=== PATIENT | female | born 1970 | race Caucasian/White ===

== ENCOUNTER 2017-10-11 09:46 | Emergency (ER) | payer OTHER ==
[~2017-10-11] VITALS: Ht 154.9 cm; Wt 79.0 kg
[~2017-10-11 09:46] MED LIST: LOVA40TA4 PO; PANT40TA PO; RANI300T2 PO; SYN100 PO
[2017-10-11 10:03] VITALS: TEMP 36.7; Ht 154.9 cm; Wt 79.0 kg
[2017-10-11 10:46] LABS: BASO % 0.1 %; BASO ABS # 0.02 K/uL (0-0.2); EOS % 0.1 %; EOS ABS # 0.02 K/uL (0-0.5); HEMATOCRIT 40.3 % (37-47); HEMOGLOBIN 13.7 g/dL (12.0-16.0); IG# 0.04 K/uL (0.00-0.02); LYMPH % 17.9 %; LYMPH ABS # 2.72 K/uL (1.2-3.4); MEAN CELL VOLUME 86.3 fL (80-100); MEAN CORPUSCULAR HEMOGLOBIN 29.3 pg (25-34); MEAN PLATELET VOLUME 10.3 fL (7.4-10.4); MONO % 7.4 %; MONO ABS # 1.13 K/uL (0.11-0.59); NEUT % 74.2 %; NEUT ABS # 11.24 K/uL (1.4-6.5); PLATELET COUNT 267 K/uL (130-400); RED CELL DISTRIBUTION WIDTH CV 12.9 % (11.5-14.5); RED CELL DISTRIBUTION WIDTH SD 40.7 fL (36.4-46.3); WHITE BLOOD COUNT 15.17 K/uL (4.8-10.8)
[2017-10-11 10:47] VITALS: O2SAT 98
[2017-10-11 11:00] LABS: BLOOD UREA NITROGEN 13 mg/dl (7-18); CALCIUM 9.1 mg/dl (8.5-10.1); CARBON DIOXIDE 29 mmol/L (21-32); CREATININE 0.74 mg/dl (0.60-1.20); GLUCOSE 89 mg/dl (70-99); POTASSIUM 3.5 mmol/L (3.5-5.1); SODIUM 140 mmol/L (136-145)
--- NOTE | 2017-10-11 11:01 | DIAGNOSTIC IMAGING REPORT ---
HEAD WITHOUT CONTRAST (CT) CLINICAL HISTORY: 47 years-old Female presenting with headache, dizziness. TECHNIQUE: Multidetector CT imaging of the head was performed without the use of intravenous contrast. IV contrast: None. A dose lowering technique was used consistent with the principles of ALARA (as low as reasonably achievable). COMPARISON: None. CT DOSE (mGy.cm): The estimated cumulative dose is 537.48 mGy.cm. FINDINGS: [employer] Professor topogram: Unremarkable. Ventricles and sulci normal in size. Brain parenchyma normal in appearance with preserved porter-white differentiation. No mass effect or midline shift. No hemorrhage or acute territorial infarct. No extra-axial fluid collection. Paranasal sinuses and mastoid air cells clear. Calvarium intact. IMPRESSION: 1. No acute intracranial abnormality. Electronically signed by: Carrington Wall M.D. 10/11/2017 11:00 AM Dictated Date/Time: 10/11/2017 10:57 AM
[2017-10-11 11:04] LABS: CKMB < 0.5 ng/ml (0.5-3.6)
[2017-10-11] MEDS ORDERED: PRED20TA PO (11:16)
[2017-10-11] MEDS ORDERED: ATOR-22 PO (11:16)
[2017-10-11] MEDS ORDERED: ACET-1256 PO (11:18)
[2017-10-11 11:52] VITALS: BP 174/98; PULSE 67; O2SAT 99
--- NOTE | 2017-10-17 17:50 | EMERGENCY ROOM VISIT NOTE ---
History First contact with patient: 10:12 Chief Complaint: HEADACHE Stated Complaint: HEADACHE,ARM AND SHOULDER PAIN,DIZZINESS History of Present Illness The patient is a 47 year old white female who presents to the Emergency Room with complaints of a headache, dizziness, and left arm and shoulder pain. Her left arm and shoulder pain have been ongoing. She noticed increasing discomfort over her left pectoral muscle yesterday and today. She also notes a posterior headache that is radiating to her forehead. She notes some dizziness associated with this. This is worse than other typical headaches. She is nauseated. No vomiting. Pain radiates to her arm along with some tingling. No numbness. She denies any loss of motion of the arm. No recent trauma. No treatment yet. Review of Systems REVIEW OF SYSTEM: HEENT: No dizziness, visual problems, hearing loss, or tinnitus. There is no difficulty swallowing and no oral lesions are present. PULMONARY: No cough, shortness of breath, sputum production or hemoptysis. CARDIOVASCULAR: No chest pain, palpitations, shortness of breath or peripheral edema. GASTROINTESTINAL: No diarrhea, constipation, nausea, vomiting, or abdominal pain. GENITOURINARY: No dysuria, frequency, urgency or nocturia. NEUROLOGIC: No weakness, muscle tenderness, epilepsy or history of neurological problems. No history of chronic headaches. MUSCULOSKELETAL: No history of joint tenderness/swelling. No history of arthritis or arthralgias. SKIN: No rashes or lesions. PSYCHIATRIC: No history of depression or mental illness. ENDOCRINE: No history of diabetes or abnormal hair growth. Past Medical/Surgical History Previous surgeries: Cholecystectomy, hysterectomy Medical history: Elevated cholesterol, GERD, hypothyroidism, arthralgias. Family History Significant for diabetes, heart disease, hypertension, cancer, lung disease, and gallbladder disease. Parents are . Social History Smoking Status: Never Smoker Smokeless Tobacco Use: No Alcohol Use: none Drug Use: none Marital Status: Housing Status: lives with family Occupation Status: unemployed Current/Historical Medications Scheduled Acetaminophen (Tylenol), 1,000 MG PO UD Atorvastatin (Lipitor), 20 MG PO HS Levothyroxine Sodium (Synthroid), 100 MCG PO QAM Pantoprazole (Protonix), 40 MG PO QAM Prednisone (Prednisone), 20 MG PO TAPER DOSE Allergies Coded Allergies: Prochlorperazine (Verified Allergy, Unknown, ANAPHYLAXIS, 4/7/18) Physical Exam Vital Signs Date Time Temp Pulse Resp B/P (MAP) Pulse Ox O2 Delivery O2 Flow Rate FiO2 10/11/17 11:52 67 16 174/98 99 10/11/17 10:47 98 Room Air 10/11/17 10:03 36.7 70 18 174/91 99 Room Air Physical Exam General: Well-developed, well-nourished, middle-aged white female, in obvious discomfort. No acute distress. Sitting on the bed. Alert and oriented. Frequently holding her posterior left shoulder. Skin: Warm and dry with good turgor. No rashes or lesions. No ecchymosis or erythema. The patient is not diaphoretic. No abrasions. HEENT: Normocephalic atraumatic. Eyes PERRLA, EOMI. No conjunctiva or scleral injection. Ears TMs intact bilaterally with good light reflexes. No erythema or bulging. No hemotympanum. Canals are patent. Nares patent bilaterally without turbinate enlargement. No significant drainage. No epistaxis. Oropharynx without erythema or exudate. Uvula midline, oral mucosa moist. No lesions present. Heart: Heart RRR. No MGR. Peripheral pulses are 2+. Lungs: Lungs are clear to auscultation. No crackles rhonchi or wheezing. Good air movement. The patient is able to take a deep breath. Abdomen: Abdomen was inspected, auscultated, and palpated. Bowel sounds present x 4. Soft, nontender to palpation. No hepato-splenomegaly. No masses noted. No rebound. Musculoskeletal: Patient has intact motor function to her neck. Rotation to the left and lateral flexion to the left increase her pain. No pain with palpation over the vertebral bodies or disc spaces. Palpable muscle spasm is present in the left trapezius. No pain with palpation over her posterior rotator cuff musculature. No pain with palpation over the deltoid, bicep, tricep, or forearm. She does complain of discomfort with palpation over the upper left pectoral muscle. Full motion of her digits, wrist, and elbow on the left arm. She has intact motor function to the left shoulder, though she does lack some overhead motion secondary to pain. Strength is 5/5 for resisted motion of the wrist, elbow, and shoulder. Neurologic: Cranial nerves II through XII are intact. Gross sensation is intact across left arm by soft touch. Radial, median, and ulnar nerve motor functions are clearly intact. Medical Decision & Procedures ER Provider Diagnostic Interpretation: CT scan imaging of the head was obtained today to rule out intracranial bleed. This was reviewed by me and read by radiology. No acute intracranial abnormality. EKG obtained today was reviewed by me and addressed with Dr. Benites. Regular rhythm with a rate of 65. No acute ST or T-wave changes. Normal EKG. No previous EKGs to compare. Laboratory Results 10/11/17 10:35 Red Blood Count 4.67, Mean Corpuscular Volume 86.3, Mean Corpuscular Hemoglobin 29.3, Mean Corpuscular Hemoglobin Concent 34.0, Mean Platelet Volume 10.3, Neutrophils (%) (Auto) 74.2, Lymphocytes (%) (Auto) 17.9, Monocytes (%) (Auto) 7.4, Eosinophils (%) (Auto) 0.1, Basophils (%) (Auto) 0.1, Neutrophils # (Auto) 11.24, Lymphocytes # (Auto) 2.72, Monocytes # (Auto) 1.13, Eosinophils # (Auto) 0.02, Basophils # (Auto) 0.02 10/11/17 10:35 Test 10/11/17 10:35 White Blood Count 15.17 K/uL (4.8-10.8) Red Blood Count 4.67 M/uL (4.2-5.4) Hemoglobin 13.7 g/dL (12.0-16.0) Hematocrit 40.3 % (37-47) Mean Corpuscular Volume 86.3 fL (80-100) Mean Corpuscular Hemoglobin 29.3 pg (25-34) Mean Corpuscular Hemoglobin Concent 34.0 g/dl (32-36) Platelet Count 267 K/uL (130-400) Mean Platelet Volume 10.3 fL (7.4-10.4) Neutrophils (%) (Auto) 74.2 % Lymphocytes (%) (Auto) 17.9 % Monocytes (%) (Auto) 7.4 % Eosinophils (%) (Auto) 0.1 % Basophils (%) (Auto) 0.1 % Neutrophils # (Auto) 11.24 K/uL (1.4-6.5) Lymphocytes # (Auto) 2.72 K/uL (1.2-3.4) Monocytes # (Auto) 1.13 K/uL (0.11-0.59) Eosinophils # (Auto) 0.02 K/uL (0-0.5) Basophils # (Auto) 0.02 K/uL (0-0.2) RDW Standard Deviation 40.7 fL (36.4-46.3) RDW Coefficient of Variation 12.9 % (11.5-14.5) Immature Granulocyte % (Auto) 0.3 % Immature Granulocyte # (Auto) 0.04 K/uL (0.00-0.02) Anion Gap 6.0 mmol/L (3-11) Est Creatinine Clear Calc Drug Dose 87.5 ml/min Estimated GFR () 110.3 Estimated GFR (Non- 95.1 BUN/Creatinine Ratio 17.3 (10-20) Calcium Level 9.1 mg/dl (8.5-10.1) Total Creatine Kinase 59 U/L (26-192) Creatine Kinase MB < 0.5 ng/ml (0.5-3.6) Creatine Kinase MB Ratio (0-3.0) Troponin I < 0.015 ng/ml (0-0.045) CBC, PRP, CK/CK-MB, and troponin were all obtained. White count is elevated at 15.1. This may be related to her recent prednisone taper. They are otherwise unremarkable. Troponin is normal. ED Course Patient was educated regarding today's findings. Conservative care measures were discussed. IV was established. Labs were obtained. CT imaging of the head was obtained due to the headache and radicular symptoms. EKG was also obtained due to the radicular symptoms. These were both normal. Labs show an elevated white count which may be related to her prednisone taper. Labs were otherwise unremarkable. Likelihood for tension headache was discussed, likely due to her cervical radiculopathy. She was reassured that I find no evidence for acute SC, meningitis, or intracranial bleed. She should follow-up with her PCP for a physical therapy referral. She may require further spine evaluation by MRI. She may also discuss this with her PCP. Start with gentle stretching daily. Ice or moist heat to the left shoulder frequently as comfort dictates. Tylenol and Motrin every 6 hours as needed for discomfort. Finish her prednisone as previously directed. Return to the ED for any acute worsening of symptoms. Medical Decision Possibility of migraine headache, tension headache, intracranial bleed, cervical radiculopathy, disc disease, meningitis, acute SC, ACS, rotator cuff pathology, and brachial plexus injury were considered among others. Impression Primary Impression: Left cervical radiculopathy Additional Impression: Tension headache Departure Information Dispostion Home / Self-Care Condition [employer] Forms HOME CARE DOCUMENTATION FORM, TYLENOL USE, IMPORTANT VISIT INFORMATION Patient Instructions [employer]! Additional Instructions Continue prednisone as previously directed Gentle stretching daily Apply ice or moist heat to the left shoulder frequently as needed for discomfort Follow-up with your PCP for a physical therapy referral and to discuss neck MRI Return to the ED for any acute changes or worsening of symptoms Problem Qualifiers
== END 2017-10-11 11:53 | disposition home or self-care (01) ==
LOC: C.EDB 09:48 → C.EDC 11:53
DX: M54.12 Radiculopathy, cervical region (principal); G44.209 Tension-type headache, unspecified, not intractable; E78.00 Pure hypercholesterolemia, unspecified; K21.9 Gastro-esophageal reflux disease without esophagitis; E03.9 Hypothyroidism, unspecified; M19.90 Unspecified osteoarthritis, unspecified site; Z90.49 Acquired absence of other specified parts of digestive tract; Z90.710 Acquired absence of both cervix and uterus; Z82.49 Family history of ischemic heart disease and other diseases of the circulatory system; Z79.899 Other long term (current) drug therapy; Z88.8 Allergy status to other drugs, medicaments and biological substances